=== PATIENT | male | born 1990 | race Caucasian/White ===

== ENCOUNTER 2025-05-18 13:21 | Emergency (ER) | payer MEDICAID ==
[2025-05-18] MEDS: Bacitracin Oint 1 GM U/D Packet TOP ONE (14:45)
[2025-05-18] MEDS: Diphtheria,Pertussis(Acell),Tetanus Vaccine 0.5 ML Syringe IM ONE (14:45)
== END 2025-05-18 15:06 | disposition home or self-care (01) ==
LOC: JP.ED 13:21
DX: S60.456A Superficial foreign body of right little finger, initial encounter (principal); Z23 Encounter for immunization; Z88.0 Allergy status to penicillin; Z86.16 Personal history of COVID-19; W45.8XXA Other foreign body or object entering through skin, initial encounter; Y93.89 Activity, other specified
CPT/HCPCS: 90471; 90715; 99283; J2003